=== PATIENT | male | born 1960 | race Caucasian/White ===

== ENCOUNTER 2018-08-31 18:58 | Observation (INO) ==
[2018-08-31] MEDS ORDERED: Morphine Inj 4 MG/ML Vial IV.PUSH ONE (19:10)
--- NOTE | 2018-08-31 19:16 | ED ---
HPI General Chief Complaint: Chest Pain Stated Complaint: CHEST PAIN/VOMITING Time Seen by Provider: 08/31/18 19:05 Source: patient Mode of arrival: ambulatory Limitations: no limitations History of Present Illness HPI narrative: 57-year-old male presents to the emergency department by private transportation for complaint of left-sided chest pain radiating into the left neck and jaw as well as the left upper extremity associated with nausea and shortness of breath. No diaphoresis. Patient states history of hypertension. Patient does use Cialis for erectile dysfunction last dose was at 7 AM. Patient states he has had no fever chills cough congestion earache neck pain wheezing abdominal pain abdominal cramping diarrhea flank pain dysuria joint pain swelling or rash. Patient does have history of hypertension and prior history of elevated cholesterol but takes no cholesterol medication her blood pressure medication at this time. Patient takes tramadol as needed for chronic back pain. Pain does radiate somewhat into his back but states this is typical of his back pains he does not find this to be new. Patient was very nauseated also had some brief dizziness. Patient states that this time 8/10 intensity discomfort has decreased to 0/10 intensity discomfort. Patient is taken no aspirin prior to arrival to the emergency department and did not take any of his sublingual nitroglycerin. Patient's last workup when he was prescribed sublingual nitroglycerin was approximately 8 years ago. Patient denies any long tract at bedrest or surgical procedure. No history of clotting disorder. No family history of premature onset heart disease. Patient did not take aspirin prior to arrival to the emergency department. MD complaint: Reports chest pain STEMI Alert: No Onset (ago): day(s) (1) Duration: intermittent and now resolved Onset: during rest Pain location: Reports substernal Severity: severe Severity scale (1-10): 8 Quality: Reports tightness and heaviness Pain radiation: Reports back (has chronic back pain), neck and jaw/teeth Relieving factors: nothing Exacerbating factors: nothing Context: Denies recent illness, recent surgery, recent immobilization, recent travel, trauma/injury, new medications and history of DVT/PE Associated symptoms: Reports nausea and dyspnea; Denies vomiting, diaphoresis, sense of impending doom, syncope, palpitations, fever, cough and leg swelling Treatments prior to arrival chest pain: Reports none Related Data Home Medications Medication Instructions Recorded Confirmed tramadol 50 mg PO Q4-6H PRN 08/31/18 08/31/18 Allergies Allergy/AdvReac Type Severity Reaction Status Date / Time doxycycline Allergy Severe UNKNOWN Unverified 08/31/18 19:45 minocycline Allergy Severe UNKNOWN Unverified 08/31/18 19:45 tigecycline Allergy Severe UNKNOWN Unverified 08/31/18 19:45 Review of Systems ROS: all other systems reviewed are negative PMFSH History History Provided By: Patient (Back surgery, erectile dysfunction, hypertension, occasional alcohol use; no tobacco use) Social History Social History Substance History: No History of Abuse Second Hand Smoke Exposure: No Smoking Status: Never smoker How Often Do You Have a Drink Containing Alcohol: 4 or more times a week Recent Travel in [facility] within the Last 8 Weeks: No Recent Out of Country Travel within the Last 8 Weeks: No Exam Narrative Exam Narrative: GENERAL: Well-nourished, well-developed patient. SKIN: Focused skin assessment warm/dry. HEAD: Normocephalic. EYES: No scleral icterus. No injection or drainage. NECK: Supple, trachea midline. No JVD or lymphadenopathy. CARDIOVASCULAR: Regular rate and rhythm without murmurs, gallops, or rubs. Bilateral radial dorsalis pedis pulses 2+ to palpation. RESPIRATORY: Breath sounds equal bilaterally. No accessory muscle use. GASTROINTESTINAL: Abdomen soft, non-tender, nondistended. MUSCULOSKELETAL: No cyanosis, or edema. BACK: Nontender without obvious deformity. No CVA tenderness. Course Initial Documented Vital Signs Temperature 98.7 F 08/31/18 19:42 Pulse Rate 77 08/31/18 19:42 Respiratory Rate 18 08/31/18 19:42 Blood Pressure 157/70 H 08/31/18 19:42 Pulse Oximetry 99 08/31/18 19:42 Last Documented Vital Signs Temperature 98.7 F 08/31/18 19:42 Pulse Rate 77 08/31/18 19:47 Respiratory Rate 18 08/31/18 19:47 Blood Pressure 136/64 08/31/18 19:47 Pulse Oximetry 99 08/31/18 19:47 Medical Decision Making MDM Narrative Medical decision making narrative: 57-year-old male with retrosternal chest pain radiating to neck and jaw with associated shortness of breath and nausea presents to the emergency department presently without any discomfort and asymptomatic. Patient does admit to drinking alcohol today. Patient does admit to prior evaluation for his heart reportedly that was negative but was given prescription for nitroglycerin. Patient took no nitroglycerin. Patient does take Cialis. Last dose of Cialis was this morning. Patient placed on news specialist with continuous pulse oximetry IV access obtained specimens collected and sent for resulting EKG performed sinus rhythm rate of [address] elevation injury pattern or ectopy noted artifact is present at baseline. Patient given aspirin 162 mg by mouth should no sublingual nitroglycerin as 1 he has no discomfort at this time and 2 has taken Cialis this morning. Patient is administered Zofran 4 mg IV specimens collected and sent for resulting At 9 PM patient aware of lab results feeling somewhat improved significant other at bedside; discussed with patient admission observation for chest pain center per protocol patient is agreeable to this. Patient's case discussed with [facility] MD Dr Stokes for chest pain center protocol admission/observation. NO ntg administered as pain 0/10 and CIALIS at 7 AM 08/31/18 Medical Screen Exam Complete: Yes Emergency Medical Condition: Yes Differential Diagnosis Differential Diagnosis: Chest pain, atypical chest pain, ACS, PA, aortic dissection, PE, esophageal spasm, biliary colic, pancreatitis Medical Records Medical records reviewed: Yes I reviewed the patient's medical records. Lab Data Result diagrams: 08/31/18 19:20 08/31/18 19:20 Lab Results 08/31/18 08/31/18 08/31/18 Range/Units 19:20 19:20 19:20 CBC w Diff Auto diff final WBC 7.4 (4.0-11.0) th/mm3 RBC 4.74 (4.50-5.90) mil/mm3 Hgb 14.8 (13.0-17.0) gm/dL Hct 45.0 (39.0-51.0) % MCV 95.0 (80.0-100.0) fL MCH 31.1 (27.0-34.0) pg MCHC 32.8 (32.0-36.0) % RDW 12.8 (11.6-17.2) % Plt Count 196 (150-450) th/mm3 MPV 8.1 (7.0-11.0) fL Neut % (Auto) 90.2 H (16.0-70.0) % Lymph % (Auto) 4.2 L (9.0-44.0) % Rolette % (Auto) 4.5 (0.0-8.0) % Eos % (Auto) 0.7 (0.0-4.0) % Baso % (Auto) 0.4 (0.0-2.0) % Neut # (Auto) 6.7 (1.8-7.7) th/mm3 Lymph # (Auto) 0.3 L (1.0-4.8) th/mm3 Rolette # (Auto) 0.3 (0.0-0.9) th/mm3 Eos # (Auto) 0.1 (0.0-0.4) th/mm3 Baso # (Auto) 0.0 (0.0-0.2) th/mm3 WBC Differential . Differential Comment . PT 10.7 (9.8-11.6) sec INR 1.1 Ratio APTT 31.0 (23.4-31.7) sec D-Dimer Quant (PE/DVT) 0.40 (0.00-0.50) mg/L FEU Sodium 137 (136-145) meq/L Potassium 4.0 (3.5-5.1) meq/L Chloride 103 (98-107) meq/L Carbon Dioxide 26.3 (21.0-32.0) meq/L Anion Gap 8 (5-15) meq/L BUN 27 H (7-18) mg/dL Creatinine 0.99 (0.60-1.30) mg/dL Estimated GFR 78 L (>89) mL/min Random Glucose 116 H (74-106) mg/dL Calcium 8.3 L (8.5-10.1) mg/dL Magnesium 1.9 (1.5-2.5) mg/dL Total Bilirubin 0.6 (0.2-1.0) mg/dL AST 24 (15-37) U/L ALT 25 (12-78) U/L Alkaline Phosphatase 70 (45-117) U/L Total Creatine Kinase 178 (39-308) U/L CK-MB (CK-2) 1.5 (0.5-3.6) ng/mL Troponin I Less than 0.02 L (0.02-0.05) ng/mL Total Protein 7.6 (6.4-8.2) g/dL Albumin 3.6 (3.4-5.0) g/dL Lipase 116 (73-393) U/L Serum Alcohol Less than 3 (0-5) mg/dL Imaging Data Radiologist's impression: Chest X-Ray 08/31/18 19:11 CONCLUSION: No acute cardiopulmonary disease. ECG Data EKG Prior to Arrival: No Attestation: I personally reviewed and interpreted this ECG as follows: (EKG: Normal sinus rhythm rate [address] elevation or injury pattern changes noted nonspecific T wave changes artifact is present at baseline) Discharge Plan Discharge Disposition Patient Disposition: ED Admit(ED Internal Use Only) Discharge Condition Condition: Stable Discharge Order Discharge Orders: ED Use Only Admit Order (Routine); Ordered 08/31/18 Ordered By: dAina Manuel Discharge Details Diagnosis: Chest pain, H/O erectile dysfunction Physicians Team ED Provider: Adina Manuel Primary Care Provider: Primary Care Physici,No Rxs /Orders / Referrals /Forms Prescriptions: No Action tramadol 50 mg Tablet 50 mg PO Q4-6H PRN (Reason: Pain) RF: 0 Discharge Instructions Patient Printed Instructions: Chest Pain (ED) Discharge Interventions Interventions: Vital Signs Last Done: 08/31/18 19:47 Status ED Status: With Doctor
[2018-08-31 19:44] LABS: Baso % (Auto) 0.4 % (0.0-2.0); Eos # (Auto) 0.1 th/mm3 (0.0-0.4); Eos % (Auto) 0.7 % (0.0-4.0); Hemoglobin 14.8 gm/dL (13.0-17.0); Lymph # (Auto) 0.3 th/mm3 (1.0-4.8); Lymph % (Auto) 4.2 % (9.0-44.0); Mean Corpuscular HGB Conc 32.8 % (32.0-36.0); Mean Corpuscular Hemoglobin 31.1 pg (27.0-34.0); Mean Platelet Volume 8.1 fL (7.0-11.0); Mono # (Auto) 0.3 th/mm3 (0.0-0.9); Mono % (Auto) 4.5 % (0.0-8.0); Neut # (Auto) 6.7 th/mm3 (1.8-7.7); Neut % (Auto) 90.2 % (16.0-70.0); Platelet Count 196 th/mm3 (150-450); Red Blood Count 4.74 mil/mm3 (4.50-5.90); Red Cell Distribution Width 12.8 % (11.6-17.2); White Blood Count 7.4 th/mm3 (4.0-11.0)
--- NOTE | 2018-08-31 19:50 | XR ---
EXAM DATE: 08/31/2018 7:39 PM EST AGE/SEX: 57 years / Male INDICATIONS: Chest pain. CLINICAL DATA: This is the patient's initial encounter. Patient reports that signs and symptoms have been present for 1 day and indicates a pain score of 5/10. MEDICAL/SURGICAL HISTORY: None. None. COMPARISON: No prior exams available for comparison. FINDINGS: A single AP view of the chest demonstrates the lungs to be symmetrically aerated without evidence of mass, infiltrate or effusion. The cardiomediastinal contours are unremarkable. Osseous structures a re intact. CONCLUSION: No acute cardiopulmonary disease. Electronically signed by: Victorino Holliday MD Board Certified Radiologist 08/31/2018 7:49 PM EST
[2018-08-31 19:56] LABS: Chloride 103 meq/L (98-107); Sodium 137 meq/L (136-145)
[2018-08-31 20:00] LABS: Albumin 3.6 g/dL (3.4-5.0); Anion Gap 8 meq/L (5-15); Blood Urea Nitrogen 27 mg/dL (7-18); Calcium 8.3 mg/dL (8.5-10.1); Carbon Dioxide 26.3 meq/L (21.0-32.0); Glucose,Random 116 mg/dL (74-106); Lipase 116 U/L (73-393); Magnesium 1.9 mg/dL (1.5-2.5)
[2018-08-31 20:03] LABS: Alanine Aminotransferase 25 U/L (12-78); Aspartate Aminotransferase 24 U/L (15-37); Glomerular Filtration Rate 78 mL/min (>89)
[2018-08-31 20:05] LABS: Total Protein 7.6 g/dL (6.4-8.2)
[2018-08-31 20:06] LABS: Alkaline Phosphatase 70 U/L (45-117); Creatine Kinase 178 U/L (39-308)
[2018-08-31 20:08] LABS: D-Dimer 0.4 mg/L FEU (0.00-0.50); INR 1.1 Ratio; Prothrombin Time 10.7 sec (9.8-11.6)
[2018-08-31 20:18] LABS: Creatine Kinase MB 1.5 ng/mL (0.5-3.6)
[2018-08-31] MEDS ORDERED: Ketorolac Inj 30 MG/ML (IVP) Vial IV.PUSH ONE (20:29)
[2018-08-31] MEDS ORDERED: Sodium Chlor 0.9% Inj 500 ML IV.SIG SCH (21:00)
[2018-08-31 22:38] LABS: Creatine Kinase 141 U/L (39-308)
[2018-09-01 02:51] LABS: Creatine Kinase 130 U/L (39-308)
--- NOTE | 2018-09-01 07:48 | P.HP ---
History of Present Illness Primary Care Physician: No Primary Care Physician Chief Complaint: Chest pain History of Present Illness: This is a 57-year-old male patient with a known medical history of chronic back pain who presented to the ED with complaints of chest pain. He states that yesterday morning he woke up and did not feel himself, states he felt fatigued and just under the weather felt like he was may be getting sick. He does admit to taking a pill he got on the Internet for erectile dysfunction he states that similar to Cialis, but does not remember the name of it. He states that shortly after taking this he felt slight chest pain in his left chest, was sharp in nature lasting a few minutes and then went away on its own. He states that he was also sick to his stomach with reports of vomiting and nausea all day. He presented to the ED last evening, ACS has been ruled out with serial EKGs and serial troponins. Chest pain has resolved. He does follow with a electronic instrument trades worker, Dr. Rubio whom he last saw 9 months ago, he underwent a full cardiac workup per patient reports at that time he underwent a nuclear stress test which was reportedly negative. He states that his lipid panel is normal. He does not take anything for cholesterol. Patient denies any recent illness including fever, chills, cough, headache, dysuria. It should be noted that patient takes this pill for erectile dysfunction relatively frequently at most may be weekly. Denies ever having these types of symptoms after taking it. - Diagnosis (1) Chest pain Review of Systems All other systems reviewed negative except as stated in HPI PMFSH - History History Provided By: Patient - Medical / Surgical Hx Neg / Unobtainable Surgical History: No Previous Surgery - Medical History Medical History: Medical History (Last Updated 09/01/18 @ 10:19 by Glenda Lou) Erectile dysfunction Hypertension - Family History Family History: Family History (Last Updated 09/01/18 @ 10:19 by Glenda Lou) Other Family history in first degree relatives is unremarkable Family history non-contributory - Social History I have reviewed the patient's Social History: Yes - Tobacco History Second Hand Smoke Exposure: No Tobacco Use In Past 30 Days: No Smoking Status: Never smoker - Alcohol History How Often Do You Have a Drink Containing Alcohol: 4 or more times a week - Substance Use History Substance History: No History of Abuse - Travel History Recent Travel in the [place] Within the Last 8 Weeks: No Recent Travel Out of the Country Within the Last 8 Weeks: No - Immunization History Tetanus Immunization: <5 Years Medications and Allergies Active Medications: Active Medications Sodium Chloride (Ns Flush) 2 ml IV.FLUSH BID JOSUE Last Admin: 08/31/18 21:58 Dose: 2 ml Sodium Chloride (Ns Flush) 2 ml IV.FLUSH PRN PRN PRN Reason: FLUSH AFTER USING IV ACCESS Allergies Allergy/AdvReac Type Severity Reaction Status Date / Time doxycycline Allergy Severe UNKNOWN Unverified 08/31/18 19:45 minocycline Allergy Severe UNKNOWN Unverified 08/31/18 19:45 tigecycline Allergy Severe UNKNOWN Unverified 08/31/18 19:45 Home Medications Medication Instructions Recorded Confirmed Type tramadol 50 mg PO Q4-6H PRN 08/31/18 08/31/18 History Exam Vital signs: Vital Signs 08/31/18 19:42 08/31/18 19:47 08/31/18 22:04 Temperature 98.7 F 99.1 F Pulse Rate 77 77 65 Respiratory Rate 18 18 18 Blood Pressure 157/70 H 136/64 123/66 Pulse Oximetry 99 99 08/31/18 22:45 09/01/18 00:00 09/01/18 01:30 Temperature 98.9 F 98.4 F Pulse Rate 78 64 Respiratory Rate 18 18 Blood Pressure 123/68 140/66 Pulse Oximetry 96 98 09/01/18 04:00 Temperature 98.6 F Pulse Rate 84 Respiratory Rate 18 Blood Pressure 111/55 L Pulse Oximetry 97 Intake & Output 08/31/18 09/01/18 09/01/18 18:59 06:59 18:59 Intake Total 740 / 740 Output Total 450 / 450 Balance 290 / 290 Weight 78.4 kg Intake: IV 500 / 500 NS Inj 500 ML @ 1000 mls/hr IV. 500 / 500 SIG [facility]US [facility] Rx#:[id number] Oral 240 / 240 Output: Urine 450 / 450 Other: Date of Last Bowel Movement 08/31/18 Weight On Admission 175.26 kg Narrative: GENERAL: Well-developed, well-nourished patient in [facility]. SKIN: Warm and dry. No rash. HEAD: Normocephalic. Atraumatic. EYES: Pupils equal and round. No scleral icterus. No injection or drainage. ENT: No nasal bleeding or discharge. Mucous membranes pink and moist. NECK: Supple. Trachea midline. CARDIOVASCULAR: Regular rate and rhythm. S1, S2 noted. No murmur appreciated. No chest pain to palpation RESPIRATORY: No accessory muscle use. Clear to auscultation. Breath sounds equal bilaterally. GASTROINTESTINAL: Abdomen soft, non-tender, nondistended. Normoactive bowel sounds x4. MUSCULOSKELETAL: No obvious deformities. Extremities without clubbing, cyanosis , or edema. NEUROLOGICAL: Awake and alert. No obvious cranial nerve deficits. Motor grossly within normal limits. 5/5 muscle strength in bilateral upper and lower extremities. Normal speech. PSYCHIATRIC: Appropriate mood and affect; insight and judgment normal. Results - Labs CBC & Chem 7: 08/31/18 19:20 08/31/18 19:20 Labs: Laboratory Results - last 24 hr 08/31/18 08/31/18 08/31/18 19:20 19:20 19:20 CBC w Diff Auto diff final WBC 7.4 RBC 4.74 Hgb 14.8 Hct 45.0 MCV 95.0 MCH 31.1 MCHC 32.8 RDW 12.8 Plt Count 196 MPV 8.1 Neut % (Auto) 90.2 H Lymph % (Auto) 4.2 L Coffey % (Auto) 4.5 Eos % (Auto) 0.7 Baso % (Auto) 0.4 Neut # (Auto) 6.7 Lymph # (Auto) 0.3 L [place]offey # (Auto) 0.3 Eos # (Auto) 0.1 Baso # (Auto) 0.0 WBC Differential . Differential Comment . PT 10.7 INR 1.1 APTT 31.0 D-Dimer Quant (PE/DVT) 0.40 Sodium 137 Potassium 4.0 Chloride 103 Carbon Dioxide 26.3 Anion Gap 8 BUN 27 H Creatinine 0.99 Estimated GFR 78 L Random Glucose 116 H Calcium 8.3 L Magnesium 1.9 Total Bilirubin 0.6 AST 24 ALT 25 Alkaline Phosphatase 70 Total Creatine Kinase 178 CK-MB (CK-2) 1.5 Troponin I Less than 0.02 L Total Protein 7.6 Albumin 3.6 Lipase 116 Serum Alcohol Less than 3 08/31/18 09/01/18 22:15 01:50 CBC w Diff WBC RBC Hgb Hct MCV MCH MCHC RDW Plt Count MPV Neut % (Auto) Lymph % (Auto) Coffey % (Auto) Eos % (Auto) Baso % (Auto) Neut # (Auto) Lymph # (Auto) Coffey # (Auto) Eos # (Auto) Baso # (Auto) WBC Differential Differential Comment PT INR APTT D-Dimer Quant (PE/DVT) Sodium Potassium Chloride Carbon Dioxide Anion Gap BUN Creatinine Estimated GFR Random Glucose Calcium Magnesium Total Bilirubin AST ALT Alkaline Phosphatase Total Creatine Kinase 141 130 CK-MB (CK-2) Troponin I Less than 0.02 L Less than 0.02 L Total Protein Albumin Lipase Serum Alcohol - Imaging Impressions Chest X-Ray 08/31/18 19:11 CONCLUSION: No acute cardiopulmonary disease. Caprini VTE Risk Assessment Caprini VTE Risk Assessment: No/Low Risk (score <= 1) Caprini Risk Assessment Model: Point Value = 1 Point Value = 2 Point Value = 3 Point Value = 5 Age 41-60 Minor surgery BMI > 25 kg/m2 Swollen legs Varicose veins or History of unexplained or recurrent spontaneous Oral contraceptives or hormone replacement Sepsis (< 1 month) Serious lung disease, including pneumonia (< 1 month) Abnormal pulmonary function Acute myocardial infarction Congestive heart failure (< 1 month) History of inflammatory bowel disease Medical patient at bed rest Age 61-74 Arthroscopic surgery Major open surgery (> 45 min) Laparoscopic surgery (> 45 min) Malignancy Confined to bed (> 72 hours) Immobilizing plaster cast Central venous access Age >= 75 History of VTE Family history of VTE Factor V Leiden Prothrombin [id number] Lupus anticoagulant Anticardiolipin antibodies Elevated serum homocysteine Heparin-induced thrombocytopenia Other congenital or acquired thrombophilia Stroke (< 1 month) Elective arthroplasty Hip, pelvis, or leg fracture Acute spinal cord injury (< 1 month) Prophylaxis Regimen: Total Risk Factor Score Risk Level Prophylaxis Regimen 0-1 Low Early ambulation 2 Moderate Order ONE of the following: *Sequential Compression Device (SCD) *Heparin 5000 units SQ BID 3-4 Higher Order ONE of the following medications: *Heparin 5000 units SQ TID *Enoxaparin/Lovenox 40 mg SQ daily (WT < 150 kg, CrCl > 30 mL/min) *Enoxaparin/Lovenox 30 mg SQ daily (WT < 150 kg, CrCl > 10-29 mL/min) *Enoxaparin/Lovenox 30 mg SQ BID (WT < 150 kg, CrCl > 30 mL/min) AND/OR *Sequential Compression Device (SCD) 5 or more Highest Order ONE of the following medications: *Heparin 5000 units SQ TID (Preferred with Epidurals) *Enoxaparin/Lovenox 40 mg SQ daily (WT < 150 kg, CrCl > 30 mL/min) *Enoxaparin/Lovenox 30 mg SQ daily (WT < 150 kg, CrCl > 10-29 mL/min) *Enoxaparin/Lovenox 30 mg SQ BID (WT < 150 kg, CrCl > 30 mL/min) AND *Sequential Compression Device (SCD) Assessment and Plan - Assessment (1) Chest pain Code(s): R07.9 - Chest pain, unspecified Status: Acute - Plan This is a 57-year-old male patient who presented to the ED with: Chest pain, atypical -Patient has been admitted to the chest pain center for observation. -Serial EKGs and serial troponins have been ordered for ruling out ACS purposes. Troponin trend flat. -EKG reviewed with controlled heart rate, no ST changes to indicate ischemia. Some flipped T waves in aVR and V1. -Cardiac telemetry, no arrhythmias overnight. Chest pain has resolved. -Lipid panel normal. -Patient states that he underwent a cardiac stress test roughly 9 months ago with a full cardiac workup which was reportedly unremarkable per patient report. -He does not want to undergo another stress test he states that he will follow with his electronic instrument trades worker. He states that he is feeling much improved. -Patient will be discharged home once GI symptoms improved and tolerating diet. -Patient will be advised to follow-up with his electronic instrument trades worker within the next week. Patient is stable at this time and agreeable to plan. Diarrhea Nausea and vomiting -Patient complains of a 1 day history of nausea and vomiting. He states that his diarrhea started last evening. -C. difficile has been ordered and pending. Will follow. -Patient will be given IV fluids for any possibility of dehydration. Will attempt p.o. intake. Any nausea or vomiting. Antiemetics as needed. History of erectile dysfunction -Patient is currently taking a medication he has obtained on the Internet for erectile dysfunction. -Encouraged to stop taking this medication and to see his electronic instrument trades worker for further input. -The use of this medication could be contributing to some of his symptoms. -Patient states that he is agreeable. DVT prophylaxis: SCDs/ambulation. (1) Chest pain Qualifiers: Chest pain type: precordial pain Qualified Code(s): R07.2 - Precordial pain
[2018-09-01] MEDS ORDERED: Sod Chloride 0.9% Inj 1,000 ML IV.CONT SCH (08:00)
[2018-09-01] MEDS ORDERED: Sod Chloride 0.9% Inj 1,000 ML IV.SIG SCH (08:00)
[2018-09-01 09:17] VITALS: BP 99/55; RESP 21; TEMP 99; O2SAT 96
[2018-09-01 10:05] LABS: Chol/HDL Ratio 2.77 Ratio; HDL Cholesterol 57.4 mg/dL (40.0-60.0)
[2018-09-01 10:45] VITALS: PULSE 62
--- NOTE | 2018-09-01 14:08 | ECG ---
Date Performed: 08/31/2018 Time Performed: 19:02:45 PTAGE: 57 years EKG: Sinus rhythm NONSPECIFIC T-WAVE ABNORMALITY BORDERLINE ECG NO PREVIOUS TRACING DOCTOR: Rachid Addison Interpretating Date/Time 09/01/2018 14:08:08
--- NOTE | 2018-09-01 14:09 | ECG ---
Date Performed: 08/31/2018 Time Performed: 22:33:25 PTAGE: 57 years EKG: Sinus rhythm POSSIBLE RIGHT VENTRICULAR CONDUCTION DELAY NONSPECIFIC T-WAVE ABNORMALITY BORDERLINE ECG Since PREVIOUS TRACING , no significant change noted PREVIOUS TRACIN08/31/2018 19.02 DOCTOR: Rachid Addison Interpretating Date/Time 09/01/2018 14:08:18
--- NOTE | 2018-09-01 14:09 | ECG ---
Date Performed: 09/01/2018 Time Performed: 01:34:29 PTAGE: 57 years EKG: Sinus rhythm POSSIBLE RIGHT VENTRICULAR CONDUCTION DELAY BORDERLINE ECG Compared to PREVIOUS TRACING , nonspecific changes have improved. PREVIOUS TRACIN08/31/2018 22.33 DOCTOR: Rachid Addison Interpretating Date/Time 09/01/2018 14:08:45
== END 2018-09-01 12:14 | disposition home or self-care (01) ==
LOC: PHEDA 18:58 → PHED 18:58 → PH3 22:42
PROVIDERS: ADMIT Hospitalist; ATTEND Hospitalist
DX: R11.2 Nausea with vomiting, unspecified; R07.2 Precordial pain; G89.29 Other chronic pain; R06.02 Shortness of breath; R07.89 Other chest pain; I10 Essential (primary) hypertension; R42 Dizziness and giddiness; N52.9 Male erectile dysfunction, unspecified; M54.9 Dorsalgia, unspecified
CPT/HCPCS: 71010; 71045; 80053; 80061; 80307; 82550; 82552; 83690; 83735; 84484; 85025; 85379; 85610; 85730; 87275; 87276; 87493; 87804; 90774; 93005; 96361; 96374; 96375; 99285; C8952; G0378; J1885; J2270; J2405; J7030; J7040